=== PATIENT | male | born 2000 | race Caucasian/White ===

== ENCOUNTER 2025-10-31 15:51 | Emergency (ER) | payer OTHER ==
[~2025-10-31] VITALS: Ht 165.1 cm; Wt 69.0 kg
[~2025-10-31 15:51] MED LIST: KEPP250 MT
[2025-10-31 15:59] VITALS: O2SAT 98
[2025-10-31 20:16] VITALS: BP 146/89; PULSE 86; RESP 18; TEMP 36.7; O2SAT 98
== END 2025-10-31 20:17 | disposition home or self-care (01) ==
LOC: ER 15:51
DX: S00.83XA Contusion of other part of head, initial encounter (principal); F10.90 Alcohol use, unspecified, uncomplicated; Y04.0XXA Assault by unarmed brawl or fight, initial encounter; Y93.89 Activity, other specified; Y92.89 Other specified places as the place of occurrence of the external cause; Y99.8 Other external cause status
CPT/HCPCS: 70486; 99284